=== PATIENT | female | born 1990 | race Caucasian/White ===

== ENCOUNTER 2016-08-22 08:18 | Emergency (ER) | payer OTHER ==
[2016-08-22 08:36] VITALS: BMI 30.2
[2016-08-22 09:13] VITALS: BP 106/66; PULSE 109; TEMP 98.3
[2016-08-22] MEDS ORDERED: ALBUTEROL SO4 2.5/IPRATROPIUM 0.5 INH SOL 3 ML VIAL.NEB. NEB ONE ×2 (11:09→11:12)
--- NOTE | 2016-08-22 11:13 | PDOC ---
History of Present Illness - General Chief Complaint: Cold Symptoms Stated Complaint: CHEST PAIN, ABD PAIN, 25 WKS Time Seen by Provider: 08/22/16 10:51 History Source: Patient Exam Limitations: No Limitations - History of Present Illness Initial Comments: 08/22/16 11:57 Chief complaint: Sore throat, productive cough, fever, chest discomfort after coughing vomited twice today History of present illness: Patient is a 26-year-old female 5 weeks with an estimated due date of 12/06/2016 who was evaluated in labor and delivery then returned here in emergency room for fever intermittent 5 days with productive cough yellowish phlegm and sore throat with chest discomfort with coughing and posttussive vomiting 2 today. Patient reports that her son has been sick with pneumonia. Patient reports that last night her temperature was 102. Patient reports that she is up-to-date with immunizations including influenza. Patient last felt movement this morning. Patient reports feeling short of breath when coughing frequently and with ambulation of pills. She is a 3, Para 1, 1 etopic. 08/22/16 12:43 08/22/16 13:03 Timing/Duration: getting worse Severity: mild Associated Symptoms: reports: cough, fever/chills, nausea/vomiting ( twice today ), shortness of breath (intermittent with coughing ), other (sore throat) Past History - Past Medical History Allergies/Adverse Reactions: Allergies Allergy/AdvReac Type Severity Reaction Status Date / Time No Known Allergies Allergy Verified 08/22/16 08:27 Home Medications: Ambulatory Orders Amoxicillin - [Amoxicillin 500mg Capsule -] 500 mg PO Q8H #21 capsule 08/22/16 Azithromycin [Zithromax 250mg Tablets -] 250 mg PO UTDICT #6 tab 08/22/16 Other medical history: NONE - Psycho/Social/Smoking Cessation Hx Anxiety: No Suicidal Ideation: No Smoking History: Never smoked Have you smoked in the past 12 months: No Information on smoking cessation initiated: No Hx Alcohol Use: No Drug/Substance Use Hx: No Substance Use Type: None Review of Systems - Review of Systems Able to Perform ROS?: Yes Constitutional: Yes: Fever (last night TMAX 102 per pt. ), Loss of Appetite HEENTM: Yes: Throat Pain Respiratory: Yes: Shortness of Breath (when coughing ), SOB with Exertion ( walking up hills ), Productive cough (yellowish ), Other (rhonchi rt. mid to rt. lower lobe clears with cough ). No: Wheezing Cardiac (ROS): No: Symptoms Reported ABD/GI: Yes: Vomiting (twice today ) : No: Symptoms Reported Musculoskeletal: No: Symptoms Reported Integumentary: No: Symptoms Reported Neurological: No: Symptoms reported *Physical Exam - Vital Signs Last Vital Signs Temp Pulse Resp BP Pulse Ox 98.3 F 109 H 17 106/66 100 08/22/16 09:08 08/22/16 09:08 08/22/16 09:08 08/22/16 09:08 08/22/16 08:29 - Physical Exam General Appearance: Yes: Appropriately Dressed HEENT: positive: TMs Normal, Pharyngeal Erythema. negative: Tonsillar Exudate, Tonsillar Erythema Neck: negative: Lymphadenopathy (R), Lymphadenopathy (L) Respiratory/Chest: positive: Normal Breath Sounds, Rhonchi (RML/RLL rhonchi with wheezing on inspiration clears with coughing ). negative: Chest Tender, Respiratory Distress Cardiovascular: positive: Regular Rhythm, Regular Rate, S1, S2 Integumentary: positive: Normal Color Neurologic: positive: Alert, Responsive Heart Score/ECG Review - ECG Impressions Comment:: 08/22/16 13:08 EKG reviewed by MD in main ED Medical Decision Making - Medical Decision Making 08/22/16 12:00 Patient is a 26-year-old female 5 weeks with an estimated due date of 12/06/2016 who was evaluated in labor and delivery then returned here in emergency room for fever intermittent 5 days with productive cough yellowish phlegm and sore throat with chest discomfort with coughing and posttussive vomiting 2 today. Patient reports that her son has been sick with pneumonia. Patient reports that last night her temperature was 102. Patient reports that she is up-to-date with immunizations including influenza. Patient last felt movement this morning. Patient reports feeling short of breath when coughing frequently and with ambulation of pills. She is a 3, Para 1, 1 etopic. bronchitis r/o influenza a & B rapid r/o strep throat PLAN: duoneb influenza A & B rapid negative throat C & S rapid negative will treat with azithromycin 250 mg 2 tabs now than one tab daily for following 4 days follow up with primary care provider amoxicillin 500 mg every 8 hrs for 7 days 08/22/16 12:43 08/22/16 13:06 *DC/Admit/Observation/Transfer Diagnosis at time of Disposition: Bronchitis - Discharge Dispostion Disposition: HOME Condition at time of disposition: Stable - Prescriptions Prescriptions: Amoxicillin - [Amoxicillin 500mg Capsule -] 500 mg PO Q8H #21 capsule Azithromycin [Zithromax 250mg Tablets -] 250 mg PO UTDICT #6 tab - Patient Instructions Additional Instructions: Discharge patient to the ER for further evaluation of upper respiratory symptoms. Keep all appointments as scheduled. Drink at least 10 glasses of water a day to maintain hydration. YOU MUST FOLLOW UP WITH YOUR PRIMARY CARE PROVIDER TOMORROW DR. LOERA RETURN TO EMERGENCY ROOM IF SYMPTOMS WORSEN DIFFICULTY BREATHING OR SHORTNESS OF BREATH OR NEW SYMPTOMS DEVELOP PATIENT VOICED UNDERSTANDING OF DISCHARGE INSTRUCTIONS AND ALL QUESTIONS WERE ANSWERED - Post Discharge Activity
--- NOTE | 2016-08-24 14:13 | EKG ---
Test Reason : Blood Pressure : / mmHG Vent. Rate : 093 BPM Atrial Rate : 093 BPM P-R Int : 112 ms QRS Dur : 080 ms QT Int : 348 ms P-R-T Axes : 077 058 007 degrees QTc Int : 432 ms NORMAL SINUS RHYTHM WITH SINUS ARRHYTHMIA CANNOT RULE OUT ANTERIOR INFARCT , AGE UNDETERMINED ABNORMAL ECG NO PREVIOUS ECGS AVAILABLE Confirmed by TAMMY BRANCH MD ([id number]) on 08/24/2016 2:12:49 PM Referred By: Confirmed By:TAMMY BRANCH MD
== END 2016-08-22 13:14 | disposition home or self-care (01) ==
LOC: JERFT 08:18 → JER 08:18 → JERFT 13:14
PROC: 3E0F7GC Introduction of Other Therapeutic Substance into Respiratory Tract, Via Natural or Artificial Opening (ICD-10-PCS; principal; 2016-08-22)
DX: O26.892 Other specified pregnancy related conditions, second trimester (principal); J40 Bronchitis, not specified as acute or chronic; Z3A.25 25 weeks gestation of pregnancy
CPT/HCPCS: 87070; 87430; 87804; 93005; 93010; 94640; 99281-25

== ENCOUNTER 2018-01-14 10:00 | Emergency (ER) | payer OTHER ==
[2018-01-14 10:06] VITALS: BP 123/54; PULSE 84; TEMP 98.3; BMI 33.3
[2018-01-14] MEDS ORDERED: KETOROLAC TROMETHAMINE 60 MG/2 ML VIAL IM ONE (10:27)
[2018-01-14] MEDS ORDERED: CYCLOBENZAPRINE HCL 10 MG TABLET (FP) PO ONE (10:27)
[2018-01-14] MEDS ORDERED: diphenhydrAMINE HCL 25 MG CAPSULE (FP) PO ONE ×2 (10:27→10:32)
--- NOTE | 2018-01-14 10:28 | PDOC ---
History of Present Illness - General Chief Complaint: Eye Problem Stated Complaint: ARM PAIN Time Seen by Provider: 01/14/18 10:11 History Source: Patient Exam Limitations: No Limitations - History of Present Illness Initial Comments: 01/14/18 10:42 Patient is a 27-year-old female with no past medical history who presents to the emergency department today for one week of right arm pain and 1 day of with swelling. Patient states that she is right-hand dominant. She states that she has pain in her neck and right shoulder. She admits to numbness and tingling and a heavy feeling in her right arm. Patient also states that she noticed yesterday her eyes were itching and her lips were swollen. She took one loratadine at 2 AM with mild relief of her symptoms. Patient does admit to seasonal ALLERGIES. Denies fevers, chills, shortness of breath, difficulty breathing, weakness to the right arm, new detergents, new food exposures. Past History - Travel Traveled outside of the country in the last 30 days: No Close contact w/someone who was outside of country & ill: No - Past Medical History Allergies/Adverse Reactions: Allergies Allergy/AdvReac Type Severity Reaction Status Date / Time No Known Allergies Allergy Verified 01/14/18 10:06 Home Medications: Ambulatory Orders Cyclobenzaprine HCl [Flexeril -] 10 mg PO HS #10 tablet 01/14/18 Diphenhydramine HCl [Benadryl -] 25 mg PO Q8H #7 capsule 01/14/18 Ibuprofen 800 mg PO TID #30 tablet 01/14/18 COPD: No - Suicide/Smoking/Psychosocial Hx Smoking History: Never smoked Have you smoked in the past 12 months: No Hx Alcohol Use: No Drug/Substance Use Hx: No Substance Use Type: None Review of Systems - Review of Systems Able to Perform ROS?: Yes Comments:: 01/14/18 10:40 CONSTITUTIONAL: Absent: fever, chills, diaphoresis, generalized weakness, malaise, loss of appetite HEENT: Present: lip swelling Absent: rhinorrhea, nasal congestion, throat pain, throat swelling, difficulty swallowing, mouth swelling, ear pain, eye pain, visual Changes CARDIOVASCULAR: Absent: chest pain, loss of consciousness, palpitations, irregular heart rate, peripheral edema RESPIRATORY: Absent: cough, shortness of breath, dyspnea with exertion, orthopnea, wheezing, stridor, hemoptysis GASTROINTESTINAL: Absent: abdominal pain, abdominal distension, nausea, vomiting, diarrhea, constipation, melena, hematochezia GENITOURINARY: Absent: dysuria, frequency, urgency, hesitancy, hematuria, flank pain, genital pain MUSCULOSKELETAL: Present: R arm, neck pain with associated numbness and tingling in the R arm. Absent:arthralgia, joint swelling SKIN: Absent: rash, itching, pallor HEMATOLOGIC/IMMUNOLOGIC: Absent: easy bleeding, easy bruising, lymphadenopathy, frequent infections ENDOCRINE: Absent: unexplained weight gain, unexplained weight loss, heat intolerance, cold intolerance NEUROLOGIC: Absent: headache, focal weakness or paresthesias, dizziness, unsteady gait, seizure, mental status changes, bladder or bowel incontinence PSYCHIATRIC: Absent: anxiety, depression, suicidal or homicidal ideation, hallucinations. Is the patient limited Turkmen proficient: No *Physical Exam - Vital Signs Last Vital Signs Temp Pulse Resp BP Pulse Ox 98.3 F 84 18 123/54 99 01/14/18 10:04 01/14/18 10:04 01/14/18 10:04 01/14/18 10:04 01/14/18 10:04 - Physical Exam Comments: 01/14/18 10:41 GENERAL: Well developed, well nourished. Awake and alert. No acute distress. HEENT: Normocephalic, atraumatic. PERRLA, EOMI. No conjunctival pallor. Sclera are non- icteric. Moist mucous membranes. Lips mildly swollen. Oropharynx is clear with no evidence of edema and patient is maintaining her own airway. NECK: Supple. Full ROM. No JVD. Carotid pulses 2+ and symmetric, without bruits. No thyromegaly. No lymphadenopathy. CARDIOVASCULAR: Regular rate and rhythm. No murmurs, rubs, or gallops. Distal pulses are 2+ and symmetric. ABDOMINAL: Soft. Non-tender. Non-distended. No rebound or guarding. No organomegaly. Normoactive bowel sounds. MUSCULOSKELETAL TTP of the paraspinous muscles of the neck and upper right trapezium. Normal range of motion at all joints. No bony deformities or tenderness. No CVA tenderness. EXTREMITIES: No cyanosis. No clubbing. No edema. No calf tenderness. SKIN: Warm and dry. Normal capillary refill. No rashes. No jaundice. NEUROLOGICAL: Alert, awake, appropriate. Cranial nerves 2-12 intact. No deficits to light touch and temperature in face, upper extremities and lower extremities. No motor deficits in the in face, upper extremities and lower extremities. Normoreflexic in the upper and lower extremities. Normal speech. Toes are down- going bilaterally. Gait is normal without ataxia. PSYCHIATRIC: Cooperative. Good eye contact. Appropriate mood and affect. Medical Decision Making - Medical Decision Making 01/14/18 10:47 Patient is a 27-year-old female with no past medical history who presents to the emergency department for one week of right sided neck pain, shoulder pain with associated numbness and tingling down the right arm. She also comes in with swelling. -On exam patient with tenderness to palpation of the left neck and right shoulder. Patient is neurologically intact with no gross deficits in the right arm. -Most likely cervical radiculopathy -Lips are mildly swollen on exam. Airway was clear and maintained. No evidence of edema. -Most likely seasonal allergies given no new exposures. -Flexeril, Toradol and Benadryl given for symptoms. Patient reports relief. -We'll discharge home at this time. Orthopedic follow-up given. Return precautions given. Pt understands all dc instructions and all questions were answered. *DC/Admit/Observation/Transfer Diagnosis at time of Disposition: Cervical radicular pain Allergic reaction Qualifiers: Encounter type: initial encounter Qualified Code(s): T78.40XA - Allergy, unspecified, initial encounter - Discharge Dispostion Disposition: HOME Condition at time of disposition: Good Decision to Admit order: No - Prescriptions Prescriptions: Cyclobenzaprine HCl [Flexeril -] 10 mg PO HS #10 tablet Diphenhydramine HCl [Benadryl -] 25 mg PO Q8H #7 capsule Ibuprofen 800 mg PO TID #30 tablet - Referrals Referrals: Marcin Duron MD [Primary Care Provider] - Ladarius Hughes MD [Staff Physician] - - Patient Instructions Printed Discharge Instructions: DI for Cervical Radiculopathy - Post Discharge Activity
[2018-01-14] MEDS ORDERED: CYCLOBENZAPRINE HCL 10 MG TABLET (FP) ONE (10:32)
[2018-01-14] MEDS ORDERED: KETOROLAC TROMETHAMINE 60 MG/2 ML VIAL ONE (10:32)
== END 2018-01-14 11:07 | disposition home or self-care (01) ==
LOC: JERFT 10:00
DX: M54.12 Radiculopathy, cervical region (principal); T78.40XA Allergy, unspecified, initial encounter; J30.2 Other seasonal allergic rhinitis
CPT/HCPCS: 99281-25

== ENCOUNTER 2018-02-18 21:43 | Emergency (ER) | payer OTHER ==
[2018-02-18 22:00] VITALS: BP 142/76; PULSE 80; TEMP 98.9; BMI 30.9
[2018-02-18] MEDS ORDERED: MECLIZINE HCL 25 MG TABLET (FP) PO ONE (22:10)
[2018-02-18] MEDS ORDERED: MECLIZINE HCL 25 MG TABLET (FP) ONE (22:14)
--- NOTE | 2018-02-18 22:35 | PDOC ---
History of Present Illness - General Chief Complaint: Headache Stated Complaint: headache Time Seen by Provider: 02/18/18 22:06 History Source: Patient Exam Limitations: No Limitations - History of Present Illness Initial Comments: 02/18/18 22:28 27 yr female with c/o right arm, wrist and hand pain for 2 months, worse at night, difficulty holding and lifting objects with right hand. Pt works as a department store manager. Pt also c/o frontal headache and dizzyness for 2 days no fever no head trauma . Pt took ibuprofen at 8am with some relief. Past History - Past Medical History Allergies/Adverse Reactions: Allergies Allergy/AdvReac Type Severity Reaction Status Date / Time No Known Allergies Allergy Verified 01/14/18 10:06 Home Medications: Ambulatory Orders Meclizine HCl [Antivert -] 12.5 mg PO TID PRN #21 tablet 02/18/18 Naproxen [Naprosyn -] 500 mg PO BID PRN #14 tablet 02/18/18 COPD: No - Suicide/Smoking/Psychosocial Hx Smoking History: Never smoked Have you smoked in the past 12 months: No Information on smoking cessation initiated: No Hx Alcohol Use: No Drug/Substance Use Hx: No Substance Use Type: None *Physical Exam - Vital Signs Last Vital Signs Temp Pulse Resp BP Pulse Ox 98.9 F 80 17 142/76 100 02/18/18 21:53 02/18/18 21:53 02/18/18 21:53 02/18/18 21:53 02/18/18 21:53 - Physical Exam General Appearance: Yes: Nourished, Appropriately Dressed HEENT: positive: EOMI, MARQUES, Normal ENT Inspection, TMs Normal, Pharynx Normal Neck: positive: Supple. negative: Tender Respiratory/Chest: positive: Lungs Clear, Normal Breath Sounds. negative: Chest Tender Cardiovascular: positive: Regular Rhythm, Regular Rate Gastrointestinal/Abdominal: positive: Normal Bowel Sounds, Soft Musculoskeletal: positive: Normal Inspection Extremity: positive: Normal Capillary Refill, Normal Inspection, Normal Range of Motion, Tender (right wrist positive tinnels sign, no deformity ) Integumentary: positive: Normal Color, Dry, Warm Neurologic: positive: Fully Oriented, Alert, Normal Mood/Affect, Normal Response , Motor Strength 5/5, Finger to Nose. negative: Numbness, Sensory Deficit, Confused, Disoriented, Depressed Affect ED Treatment Course - Medications Given in the ED: ED Medications Discontinued Medications Generic Name Dose Route Start Last Admin Trade Name Yosi PRN Reason Stop Dose Admin Meclizine HCl 25 mg 02/18/18 22:10 02/18/18 22:20 Antivert - PO 02/18/18 22:11 25 mg ONCE ONE Administration Medical Decision Making - Medical Decision Making 02/18/18 22:31 cc: 2 months right wrist pain 2 days headache and dizzyness no focal deficits neuro intact, pt currently texting on cell phone during exam denies any vision changes will give meclizine now dc home refer to ortho and neurology, pt states she gets headaches often *DC/Admit/Observation/Transfer Diagnosis at time of Disposition: Carpal tunnel syndrome of right wrist Headache Qualifiers: Headache type: unspecified Headache chronicity pattern: unspecified pattern Intractability: not intractable Qualified Code(s): R51 - Headache - Discharge Dispostion Disposition: HOME Condition at time of disposition: Improved - Prescriptions Prescriptions: Meclizine HCl [Antivert -] 12.5 mg PO TID PRN #21 tablet PRN Reason: dizzyness Naproxen [Naprosyn -] 500 mg PO BID PRN #14 tablet PRN Reason: Pain - Referrals Referrals: Sebastián Mancilla MD [Staff Physician] - Clement Martell MD [Staff Physician] - - Patient Instructions Additional Instructions: follow with for your hand and wrist pain, you can get an over the counter wrist splint made for carpal tunnel pain wear it at night follow with the neurologist for your headaches make sure you drink 2 liters of water a day avoid cell phone texting small print, this can make symptoms worse - Post Discharge Activity Forms/Work/School Notes: Back to Work
== END 2018-02-18 22:39 | disposition home or self-care (01) ==
LOC: JER 21:43 → JERFT 21:43
DX: R51 Headache (principal); G56.01 Carpal tunnel syndrome, right upper limb
CPT/HCPCS: 99281-25

== ENCOUNTER 2018-10-04 18:06 | Emergency (ER) | payer OTHER ==
[2018-10-04 18:12] VITALS: BP 142/85; PULSE 92; TEMP 98.3; BMI 32.9
--- NOTE | 2018-10-04 18:12 | PDOC ---
Rapid Medical Evaluation Time Seen by Provider: 10/04/18 18:09 Medical Evaluation: Allergies Allergy/AdvReac Type Severity Reaction Status Date / Time No Known Allergies Allergy Verified 01/14/18 10:06 10/04/18 18:09 I have performed a brief in-person evaluation of this patient. The patient presents with a chief complaint of: midsternal chest pain x 3 days, nausea, and headache, now feeling SOB. +2 episodes of vomiting. reports fever of 100 last night. denies cough, rash, other URI symptoms. CP worsens on inspiration. pt denies OCP but reports having Mirena, denies recent surgery or travel. Pertinent physical exam findings: well appearing, NAD, negative for speech dyspnea, reproducible midsternal CP on palpation. I have ordered the following: labs, urine, cxr, ekg The patient will proceed to the ED for further evaluation.
[2018-10-04] MEDS ORDERED: METOCLOPRAMIDE HCL INJECTION 10 MG/2 ML VIAL IVPUSH ONE (20:04)
[2018-10-04] MEDS ORDERED: ACETAMINOPHEN 1000 MG/100 ML VIAL (NON FORMULARY) IVPB ONE (20:04)
--- NOTE | 2018-10-04 20:04 | PDOC ---
History of Present Illness - General Chief Complaint: Chest Pain Stated Complaint: NAUSEA/CHEST PAIN Time Seen by Provider: 10/04/18 18:09 History Source: Patient Exam Limitations: No Limitations - History of Present Illness Initial Comments: 10/04/18 19:54 28 yo female no sig pmh presents to the ER for 3 days of NB/NB vomiting, CP, SOB and REESE. Pt states the CP is non exertional, substernal, intermittent, non radiating, made worse with deep breaths and laying flat, better with leaning forward, no fhx of heart disease. Pt admits to history of minor headaches which improve with Ibuprofen however, it has not helped this time. The pain wraps around her head, described as dull and has associate numbness/tingling and weakness into her arms (right worse than left) and blurry vision during episodes of REESE along with flushed feeling in the face with an itchy rash. Of note, pt saw PCP 1 week ago for bilateral shoulder pain, given muscle relaxant with improvement. Denies F/C pt has 3 children, Past History - Past Medical History Allergies/Adverse Reactions: Allergies Allergy/AdvReac Type Severity Reaction Status Date / Time No Known Allergies Allergy Verified 10/04/18 18:10 Home Medications: Ambulatory Orders Ibuprofen 200 mg PO PRN 10/04/18 COPD: No - Suicide/Smoking/Psychosocial Hx Smoking History: Never smoked Have you smoked in the past 12 months: No Hx Alcohol Use: No Drug/Substance Use Hx: No Substance Use Type: None *Physical Exam - Vital Signs Last Vital Signs Temp Pulse Resp BP Pulse Ox 98.3 F 92 H 18 142/85 100 10/04/18 18:11 10/04/18 18:11 10/04/18 18:11 10/04/18 18:11 10/04/18 18:11 ED Treatment Course - LABORATORY CBC & Chemistry Diagram: 10/04/18 20:00 10/04/18 20:00 *DC/Admit/Observation/Transfer Diagnosis at time of Disposition: Chest pain - Discharge Dispostion Disposition: AGAINST MEDICAL ADVICE - Referrals Referrals: Marcin Duron MD [Primary Care Provider] - - Patient Instructions Printed Discharge Instructions: DI for Atypical Chest Pain, DI for Chest Pain Additional Instructions: You are signing out against medical advice at this time. See your Primary Doctor within the next 48 hours. Return to the ER for new or concerning symptoms including but not limited to: severe chest pain, high fevers, inability to eat or drink. Thank you - Post Discharge Activity
[2018-10-04] MEDS ORDERED: diphenhydrAMINE HCL 25 MG CAPSULE (FP) PO ONE ×2 (20:06→20:21)
[2018-10-04 20:14] LABS: BASO % 0.3 % (0-2.0); EOS % 1.2 % (0-4.5); HEMOGLOBIN 12.7 GM/dL (10.7-15.3); LYMPH % 31.6 % (8-40); MCH 27.6 pg (25.7-33.7); MCHC 32.6 g/dl (32.0-36.0); MEAN CELL VOLUME 84.6 fl (80-96); MEAN PLT VOLUME 10.9 fl (7.5-11.1); MONO % 6.6 % (3.8-10.2); NEUT % 60.3 % (42.8-82.8); PLATELET COUNT 244 K/MM3 (134-434); RBC 4.61 M/mm3 (3.60-5.2); RDW 13.2 % (11.6-15.6); WHITE BLOOD COUNT 10.3 K/mm3 (4.0-10.0)
[2018-10-04] MEDS ORDERED: SODIUM CHLORIDE 0.9% 1000 ML INFUS.BAG IV ONE (20:15)
[2018-10-04] MEDS ORDERED: KETOROLAC TROMETHAMINE 15 MG/ML VIAL IVPUSH ONE (20:17)
[2018-10-04] MEDS ORDERED: ACETAMINOPHEN INJECTION 100 ML IVPB ONE (20:21)
[2018-10-04] MEDS ORDERED: METOCLOPRAMIDE HCL INJECTION 10 MG/2 ML VIAL ONE (20:21)
[2018-10-04 20:24] LABS: INR 1.17 (0.83-1.09); PROTHROMBIN TIME (PATIENT) 13.8 SEC (9.7-13.0)
--- NOTE | 2018-10-04 20:37 | PDOC ---
Documentation entered by Jodi Rosas SCRIBE, acting as scribe for Cathie White DO. Cathie White DO: This documentation has been prepared by the Ralph champion Xhesika, SCRIBE, under my direction and personally reviewed by me in its entirety. I confirm that the documentation accurately reflects all work, treatment, procedures, and medical decision making performed by me. Attending Attestation - Resident Resident Name: Jorge Guo - ED Attending Attestation I have performed the following: I have examined & evaluated the patient, The case was reviewed & discussed with the resident, I agree w/resident's findings & plan, Exceptions are as noted - HPI HPI: 10/04/18 20:39 The patient is a 28 year old female, with a significant PMH of IUD (every 7 months) who presents to the emergency department with 3 days of vomiting, headache and chest pain. The patient describes the chest pain as substernal, non radiating, intermittent burning sensation that is aggravated with deep breathing and laying flat, and alleviated with leaning forward. The patient describes her headache as dull pain that wraps around her head and radiates into her arms. The patient states her previous headaches resolved after taking Ibuprofen, however, it has not resolved this time. The patient is endorsing subjective fevers, blurry vision and an itchy rash on her face, secondary to her symptoms. The patient notes she has not been eating or drinking for the last 3 days. The patient denies sweating or dizziness. Denies chills, nausea, diarrhea and constipation. Denies dysuria, frequency, urgency and hematuria. Allergies: NKDA Past surgical history: None reported Social history: None reported PCP: Dr. Marcin Duron - Physicial Exam PE: 10/04/18 20:40 GENERAL: Awake, alert, and fully oriented, in no acute distress HEAD: No signs of trauma EYES: PERRLA, EOMI, sclera anicteric, conjunctiva clear ENT: Auricles normal inspection, hearing grossly normal, nares patent, oropharynx clear without exudates. Moist mucosa NECK: Normal ROM, supple, no lymphadenopathy, JVD, or masses LUNGS: Breath sounds equal, clear to auscultation bilaterally. No wheezes, and no crackles HEART: Regular rate and rhythm, normal S1 and S2, no murmurs, rubs or gallops ABDOMEN: Soft, nontender, normoactive bowel sounds. No guarding, no rebound. No masses EXTREMITIES: Normal range of motion, no edema. No clubbing or cyanosis. No cords, erythema, or tenderness NEUROLOGICAL: Cranial nerves II through XII grossly intact. Normal speech, normal gait SKIN: Warm, Dry, normal turgor, no rashes or lesions noted. - Medical Decision Making 10/04/18 20:31 I, Dr. Cathie White, DO, attest that this document has been prepared under my direction and personally reviewed by me in its entirety. I further attest, that it accurately reflects all work, treatment, procedures and medical decision -making performed by me. 10/04/18 20:31 a/p: 28yo female with n/v x 3 days, unable to tolerate po and padilla -no abd pain -no fevers -cp feels like a burning sensation, padilla and has not been eating x 3 days secondary to nausea -pt is nontoxic in appearance -no leg pain, no pleuritic component -neuro intact -no neuro focal findings, no meningeal signs, ambulatory with a steady gait -will send labs, iv meds, will monitor and reassess 10/04/18 21:17 pt states feeling better no longer in pain 10/04/18 22:05 pt states she feels better and wants to leave resident discussed signing out AMA in full detail. pt decided to sign out AMA Note: The patient insists on leaving the emergency dept and is signing out against medical advice. The patient understands the risks and complications that may result from the refusal of medical care and admission which includes and permanent disability. The patient has the mental capacity of understanding the risks of refusing care and is capable of making an informed decision. The patient was instructed to return to the emergency department should she change her mind regarding medical care or should her condition worsen. The patient signed the Against Medical Advice form.
[2018-10-04] MEDS ORDERED: KETOROLAC TROMETHAMINE 15 MG/ML VIAL ONE (20:39)
[2018-10-04 20:57] LABS: ALBUMIN 3.7 g/dl (3.4-5.0); ALK PHOS 45 U/L (45-117); ANION GAP 8 MMOL/L (8-16); BILIRUBIN,TOTAL 0.2 mg/dL (0.2-1); BLOOD UREA NITROGEN 15 mg/dL (7-18); CALCIUM 8.7 mg/dL (8.5-10.1); CHLORIDE 108 mmol/L (98-107); CO2 27 mmol/L (21-32); CREATININE 0.8 mg/dL (0.55-1.3); GLUCOSE,RANDOM 80 mg/dL (74-106); MAGNESIUM 2.1 mg/dL (1.8-2.4); POTASSIUM 4.1 mmol/L (3.5-5.1); SGOT/AST 17 U/L (15-37); SGPT/ALT 20 U/L (13-61); SODIUM 143 mmol/L (136-145)
--- NOTE | 2018-10-06 15:39 | EKG ---
Test Reason : Blood Pressure : / mmHG Vent. Rate : 081 BPM Atrial Rate : 081 BPM P-R Int : 132 ms QRS Dur : 096 ms QT Int : 358 ms P-R-T Axes : 071 074 052 degrees QTc Int : 415 ms NORMAL SINUS RHYTHM WITH SINUS ARRHYTHMIA NORMAL ECG WHEN COMPARED WITH ECG OF 22-AUG-2016 08:23, ST NO LONGER DEPRESSED IN ANTERIOR LEADS T WAVE INVERSION NO LONGER EVIDENT IN INFERIOR LEADS T WAVE INVERSION NO LONGER EVIDENT IN ANTERIOR LEADS Confirmed by MD Duncan, Balaji ([id number]) on 10/06/2018 3:39:14 PM Referred By: Confirmed By:Balaji Song MD
== END 2018-10-04 23:17 | disposition left against medical advice (07) ==
LOC: JER 18:06
PROC: 3E033GC Introduction of Other Therapeutic Substance into Peripheral Vein, Percutaneous Approach (ICD-10-PCS; principal; 2018-10-04)
PROC: 3E033NZ Introduction of Analgesics, Hypnotics, Sedatives into Peripheral Vein, Percutaneous Approach (ICD-10-PCS; 2018-10-04)
PROC: 3E0333Z Introduction of Anti-inflammatory into Peripheral Vein, Percutaneous Approach (ICD-10-PCS; 2018-10-04)
DX: R07.9 Chest pain, unspecified (principal)
CPT/HCPCS: 36415; 80053; 82550; 82553; 83735; 84484; 85025; 85610; 93005; 93010; 99284-25; J0131; J7030

== ENCOUNTER 2019-05-11 08:35 | Emergency (ER) | payer OTHER ==
[2019-05-11 08:50] VITALS: BP 124/69; PULSE 121; TEMP 99.3; BMI 32.5
[2019-05-11] MEDS ORDERED: IBUPROFEN 100 MG/5 ML UNIT DOSE CUPS PO ONE (09:25)
[2019-05-11] MEDS ORDERED: ONDANSETRON *ODT* 4 MG TABLET SL ONE (09:26)
--- NOTE | 2019-05-11 09:30 | PDOC ---
History of Present Illness - General Chief Complaint: Pain, Acute Stated Complaint: COLD SYMPTOMS Time Seen by Provider: 05/11/19 09:11 - History of Present Illness Initial Comments: 05/11/19 09:28 CHIEF COMPLAINT: sore throat, L flank pain HISTORY OF PRESENT ILLNESS: 28 yo F with no PMH presents to ED with sore throat , diarrhea x 3 days and left flank pain x 1 week. Patient reports "feeling a ball of fire in my throat", fever Tmax 105 at home, and 3-4 episodes of diarrhea daily. Patient also endorses urinary frequency, dysuria, and urgency, denies hematuria. No recent travel or sick contacts. PAST MEDICAL HISTORY: Denies past medical history FAMILY HISTORY: Denies SOCIAL HISTORY: Denies tobacco, alcohol, illicit drug use. SURGICAL HISTORY: Denies ALLERGIES: No known drug allergies REVIEW OF SYSTEMS General/Constitutional: Denies fever or chills. Denies weakness, weight change. HEENT: Denies change in vision. Denies ear pain or discharge. Denies sore throat. Cardiovascular: Denies chest pain or shortness of breath. Respiratory: Denies cough, wheezing, or hemoptysis. Gastrointestinal: Denies nausea, vomiting, diarrhea or constipation. Denies rectal bleeding. Genitourinary: Denies dysuria, frequency, or change in urination. Musculoskeletal: Denies joint or muscle swelling or pain. Denies neck or back pain. Skin and breasts: Denies rash or easy bruising. Neurologic: Denies headache, vertigo, loss of consciousness, or loss of sensation. Psychiatric: Denies depression or anxiety. Endocrine: Denies increased thirst. Denies abnormal weight change. Hematologic/Lymphatic: Denies anemia, easy bleeding, or history of blood clots. Allergic/Immunologic: Denies hives or skin allergy. Denies latex allergy. PHYSICAL EXAM General Appearance: Well-appearing, appropriately dressed. No apparent distress , no intoxication. HEENT: Tonsils 2+ with erythema, oropharynx erythematous. EOMI, PERRLA, normal voice, TMs normal, pharynx normal. No conjunctival pallor. No photophobia, scleral icterus. Neck: Supple. Trachea midline. No tenderness, rigidity, carotid bruit, stridor , lymphadenopathy, or thyromegaly. Respiratory/Chest: Lungs CTAB. No shortness of breath, chest tenderness, respiratory distress, accessory muscle use. No crackles, rales, rhonchi, stridor , wheezing, dullness Cardiovascular: RRR. S1, S2. No JVD, murmur, bradycardia, tachycardia. Vascular Pulses: Dorsalis-Pedis (R): 2+, Dorsalis-Pedis (L): 2+ Gastrointestinal/Abdominal: Normal bowel sounds. Abdomen soft, non-distended. No tenderness or rebound tenderness. No organomegaly, pulsatile mass, guarding , hernia, hepatomegaly, splenomegaly. Lymphatic: No adenopathy, tenderness. Musculoskeletal/Extremities: +L CVA tenderness. Normal inspection. FROM of all extremities, normal capillary refill. Pelvis Stable. No CVA tenderness. No tenderness to extremities, pedal edema, swelling, erythema or deformity. Integumentary: Appropriate color, dry, warm. No cyanosis, erythema, jaundice or rash Neurologic: surgery specialist II-XII intact. Fully oriented, alert. Appropriate mood/affect. Motor strength 5/5. No appreciable EOM palsy, facial droop or sensory deficit. Past History - Past Medical History Allergies/Adverse Reactions: Allergies Allergy/AdvReac Type Severity Reaction Status Date / Time No Known Allergies Allergy Verified 05/11/19 08:43 Home Medications: Ambulatory Orders Acetaminophen [Tylenol] 650 mg PO QID PRN 05/11/19 Amoxicillin - [Amoxicillin 500mg Capsule -] 500 mg PO BID #14 capsule 05/11/19 Nitrofurantoin Monohyd/M-Cryst [Macrobid -] 100 mg PO BID #14 capsule 05/11/19 COPD: No - Psycho Social/Smoking Cessation Hx Smoking History: Never smoked Have you smoked in the past 12 months: No Hx Alcohol Use: No Drug/Substance Use Hx: No Substance Use Type: None *Physical Exam - Vital Signs Last Vital Signs Temp Pulse Resp BP Pulse Ox 99.3 F 121 H 18 124/69 99 05/11/19 08:45 05/11/19 08:45 05/11/19 08:45 05/11/19 08:45 05/11/19 08:45 Medical Decision Making - Medical Decision Making 05/11/19 09:45 28 yo F with no PMH presents to ED with sore throat, diarrhea x 3 days and left flank pain x 1 week. -strep -ua strep positive ua +for UTI -amox -macrobid Advised patient to take medication as prescribed and follow up with PCP within the next week. Advised patient of signs and symptoms for return to ED. Patient verbalized understanding and agrees to plan. Discharge - Discharge Information Problems reviewed: Yes Clinical Impression/Diagnosis: Strep pharyngitis Urinary tract infection Qualifiers: Urinary tract infection type: site unspecified Hematuria presence: without hematuria Qualified Code(s): N39.0 - Urinary tract infection, site not specified Condition: Stable Disposition: HOME - Admission No - Additional Discharge Information Prescriptions: Amoxicillin - [Amoxicillin 500mg Capsule -] 500 mg PO BID #14 capsule Nitrofurantoin Monohyd/M-Cryst [Macrobid -] 100 mg PO BID #14 capsule - Follow up/Referral Referrals: Marcin Duron MD [Primary Care Provider] - - Patient Discharge Instructions Patient Printed Discharge Instructions: DI for Strep Throat, DI for Urinary Tract Infection (UTI) - Post Discharge Activity Work/Back to School Note: Back to Work
[2019-05-11] MEDS ORDERED: ONDANSETRON *ODT* 4 MG TABLET ONE (09:43)
[2019-05-11] MEDS ORDERED: IBUPROFEN 100 MG/5 ML UNIT DOSE CUPS ONE (09:43)
[2019-05-11 09:57] LABS: EPI CELLS 11.9 /HPF (0-5/HPF); HYALINE CASTS 29 /lpf (0-8); PH,URINE 5.5 (5.0-8.0); URINE APPEARANCE CLOUDY; URINE BACTERIA 942.6 /hpf (NEGATIVE); URINE BILIRUBIN NEGATIVE (NEGATIVE); URINE COLOR YELLOW; URINE GLUCOSE (UA) NEGATIVE (NEGATIVE); URINE KETONE 1+ (NEGATIVE); URINE LEUK ESTERASE 2+ (NEGATIVE); URINE NITRITE NEGATIVE (NEGATIVE); URINE PROTEIN 1+ (NEGATIVE); URINE WBC 45 /hpf (0-5)
[2019-05-11] MEDS ORDERED: NITROFURANTOIN MACROCRYSTAL 50 MG CAPSULE (FP) PO SCH (10:00)
[2019-05-11] MEDS ORDERED: NITROFURANTOIN MACROCRYSTAL 50 MG CAPSULE (FP) ONE (10:13)
[2019-05-11 17:36] LABS: URINE RBC 9.1 /hpf (0-4)
== END 2019-05-11 10:41 | disposition home or self-care (01) ==
LOC: JER 08:35
DX: J02.0 Streptococcal pharyngitis (principal); B95.0 Streptococcus, group A, as the cause of diseases classified elsewhere; N39.0 Urinary tract infection, site not specified
CPT/HCPCS: 81003; 84703; 87086; 87880; 99281-25; Q0162

== ENCOUNTER 2020-10-07 13:36 | Emergency (ER) | payer OTHER ==
[2020-10-07 13:42] VITALS: BP 105/64; PULSE 93; TEMP 98.2; BMI 32.9
[2020-10-07] MEDS ORDERED: ONDANSETRON *ODT* 4 MG TABLET SL ONE (14:55)
[2020-10-07] MEDS ORDERED: ACETAMINOPHEN 325 MG TABLET (FP) PO ONE (14:55)
[2020-10-07] MEDS ORDERED: ACETAMINOPHEN 325 MG TABLET (FP) ONE (14:56)
[2020-10-07] MEDS ORDERED: ONDANSETRON *ODT* 4 MG TABLET ONE (14:56)
== END 2020-10-07 15:58 | disposition home or self-care (01) ==
LOC: JER 13:36
DX: R51.9 Headache, unspecified (principal)
CPT/HCPCS: 70450-TC; 99284-25; Q0162

== ENCOUNTER 2021-02-13 18:01 | Emergency (ER) | payer OTHER ==
[2021-02-13 18:16] VITALS: TEMP 98.6; BMI 34.7
[2021-02-13] MEDS ORDERED: LACTATED RINGERS SOLUTION 1000 ML INFUS.BAG IV ONE ×2 (19:23→20:28)
[2021-02-13] MEDS ORDERED: PROCHLORPERAZINE INJECTION 10 MG/2 ML VIAL IVPB ONE (19:24)
[2021-02-13] MEDS ORDERED: PROCHLORPERAZINE INJECTION 10 MG/2 ML VIAL ONE (19:32)
[2021-02-13] MEDS ORDERED: METOCLOPRAMIDE HCL INJECTION 10 MG/2 ML VIAL IVPUSH ONE (20:26)
[2021-02-13] MEDS ORDERED: MAGNESIUM SULF 50% (8.12 MEQ/2 ML-1 GM VIAL) IVPB ONE (20:27)
[2021-02-13] MEDS ORDERED: METOCLOPRAMIDE HCL INJECTION 10 MG/2 ML VIAL ONE (20:32)
[2021-02-13] MEDS ORDERED: MAGNESIUM SULFATE IN WATER 2 GM/50 ML IVPB IVPB ONE (20:33)
[2021-02-13 21:03] LABS: HEMATOCRIT 37.5 % (32.4-45.2); HEMOGLOBIN 12.4 GM/dL (10.7-15.3); MEAN CELL VOLUME 83.4 fl (80-96); WHITE BLOOD COUNT 8.9 K/mm3 (4.0-10.0)
[2021-02-13 21:04] LABS: BASO % 0.3 % (0-2.0); EOS % 3.1 % (0-4.5); LYMPH % 23.4 % (8-40); MCH 27.6 pg (25.7-33.7); MCHC 33.1 g/dl (32.0-36.0); MEAN PLT VOLUME 10.3 fl (7.5-11.1); NEUT % 68.2 % (42.8-82.8); PLATELET COUNT 226 10^3/uL (134-434); RDW 14.1 % (11.6-15.6)
[2021-02-13 21:36] LABS: BLOOD UREA NITROGEN 10.7 mg/dL (7-18); CREATININE 0.8 mg/dL (0.55-1.3)
[2021-02-13 21:37] LABS: ALBUMIN 2.7 g/dl (3.4-5.0); BILIRUBIN,TOTAL 0.2 mg/dL (0.2-1); CALCIUM 8.5 mg/dL (8.5-10.1); TOT PROT 6.2 g/dl (6.4-8.2)
[2021-02-13] MEDS ORDERED: MECLIZINE HCL 25 MG TABLET (FP) PO ONE (22:23)
[2021-02-13 22:27] LABS: URINE APPEARANCE CLEAR; URINE BILIRUBIN NEGATIVE (NEGATIVE); URINE COLOR YELLOW; URINE GLUCOSE (UA) NEGATIVE (NEGATIVE); URINE KETONE NEGATIVE (NEGATIVE)
[2021-02-13 22:28] LABS: URINE LEUK ESTERASE 4+ (NEGATIVE); URINE NITRITE NEGATIVE (NEGATIVE); URINE PROTEIN NEGATIVE (NEGATIVE); URINE RBC 18.5 /uL (0-23.9); URINE UROBILINOGEN 0.2 mg/dL (0.2-1.0); URINE WBC 113.3 /uL (0-25.8)
[2021-02-13 22:29] LABS: EPI CELLS 22.1 /uL (0-25.1); HYALINE CASTS 0.25 /uL (0-3.1); URINE BACTERIA 1413.7 /uL (0-1359)
[2021-02-13] MEDS ORDERED: MECLIZINE HCL 25 MG TABLET (FP) ONE (22:38)
[2021-02-13 22:53] VITALS: BP 128/75; PULSE 61
== END 2021-02-13 23:06 | disposition home or self-care (01) ==
LOC: JER 18:01
PROC: 3E033GC Introduction of Other Therapeutic Substance into Peripheral Vein, Percutaneous Approach (ICD-10-PCS; principal; 2021-02-13)
PROC: 3E033GC Introduction of Other Therapeutic Substance into Peripheral Vein, Percutaneous Approach (ICD-10-PCS; 2021-02-13)
PROC: 3E033GC Introduction of Other Therapeutic Substance into Peripheral Vein, Percutaneous Approach (ICD-10-PCS; 2021-02-13)
DX: R51.9 Headache, unspecified (principal); R42 Dizziness and giddiness
CPT/HCPCS: 36415; 70450-TC; 80053; 81003; 85025; 99284-25

== ENCOUNTER 2023-07-10 16:50 | Emergency (ER) | payer OTHER ==
[2023-07-10 17:04] VITALS: TEMP 97.8; BMI 24.0
[2023-07-10] MEDS ORDERED: SUCRALFATE 1 GM TABLET (FP) ONE (17:41)
[2023-07-10] MEDS ORDERED: FAMOTIDINE 20 MG/50 ML IVPB 20 MG/50 ML MG IVPB ONE (17:42)
[2023-07-10] MEDS ORDERED: MAG HYDROX/AL HYDROX/SIMETH 30 ML UNIT-DOSE CUP ONE (17:42)
[2023-07-10] MEDS ORDERED: ACETAMINOPHEN INJECTION 100 ML IVPB ONE (17:42)
[2023-07-10 18:02] LABS: BASO % 0.4 % (0-2.0); EOS % 1.5 % (0-4.5); HEMATOCRIT 36.5 % (32.4-45.2); HEMOGLOBIN 11.9 GM/dL (10.7-15.3); LYMPH % 35.3 % (8-40); MCH 27.2 pg (25.7-33.7); MCHC 32.7 g/dl (32.0-36.0); MEAN CELL VOLUME 83.3 fl (80-96); MEAN PLT VOLUME 9.8 fl (7.5-11.1); MONO % 5.4 % (3.8-10.2); NEUT % 57.4 % (42.8-82.8); PLATELET COUNT 250 10^3/uL (134-434); RBC 4.38 M/mm3 (3.60-5.2); RDW 13.4 % (11.6-15.6); WHITE BLOOD COUNT 7.1 K/mm3 (4.0-10.0)
[2023-07-10] MEDS: MAG HYDROX/AL HYDROX/SIMETH -MYLANTA- ORAL SUSPENSION PO ONE (18:08)
[2023-07-10] MEDS: ACETAMINOPHEN 1000 MG/100 ML BAG IVPB ONE (18:08)
[2023-07-10] MEDS: SUCRALFATE 1 GM TABLET (FP) PO ONE (18:08)
[2023-07-10] MEDS: FAMOTIDINE 20 MG/50 ML IVPB 20 MG/50 ML MG IVPB ONE (18:08)
[2023-07-10 18:25] LABS: POTASSIUM 4.1 mmol/L (3.5-5.1)
[2023-07-10 18:27] LABS: MAGNESIUM 1.9 mg/dL (1.8-2.4)
[2023-07-10 18:28] LABS: ALBUMIN 3.8 g/dl (3.4-5.0); BLOOD UREA NITROGEN 13.1 mg/dL (7-18); CALCIUM 9.1 mg/dL (8.5-10.1)
[2023-07-10 18:30] LABS: CREATININE 0.7 mg/dL (0.55-1.3)
[2023-07-10 18:32] LABS: TOT PROT 7.3 g/dl (6.4-8.2)
[2023-07-10 18:33] LABS: BILIRUBIN,TOTAL 0.4 mg/dL (0.2-1)
[2023-07-10 18:49] LABS: INR 1.11 (0.83-1.09); PROTHROMBIN TIME (PATIENT) 12.9 SEC (9.7-13.0)
[2023-07-10] MEDS ORDERED: KETOROLAC TROMETHAMINE 30 MG/1 ML VIAL ONE (22:03)
[2023-07-10] MEDS: KETOROLAC TROMETHAMINE 30 MG/1 ML VIAL IVPUSH ONE (22:07)
[2023-07-10 23:43] VITALS: BP 110/65; PULSE 87; RESP 19
== END 2023-07-10 23:26 | disposition home or self-care (01) ==
LOC: JER 16:50
PROC: 3E033GC Introduction of Other Therapeutic Substance into Peripheral Vein, Percutaneous Approach (ICD-10-PCS; principal; 2023-07-10)
PROC: 3E033NZ Introduction of Analgesics, Hypnotics, Sedatives into Peripheral Vein, Percutaneous Approach (ICD-10-PCS; 2023-07-10)
PROC: 3E0333Z Introduction of Anti-inflammatory into Peripheral Vein, Percutaneous Approach (ICD-10-PCS; 2023-07-10)
DX: R10.10 Upper abdominal pain, unspecified (principal); R07.9 Chest pain, unspecified; R06.02 Shortness of breath; R10.13 Epigastric pain
CPT/HCPCS: 36415; 71046-TC-FY; 71275-TC; 74177-TC; 80053; 83605; 83690; 83735; 84484; 84703; 85025; 85379; 85610; 85730; 86850; 86900; 86901; 93005; 93010; 99285-25; J0131; Q9967